=== PATIENT | female | born 1990 | race Two or more races ===

== ENCOUNTER → 2018-07-31 | Outpatient (CLI) | payer SELFPAY ==
--- NOTE | 2018-07-31 16:45 | RADIOLOGY REPORT (SQ) ---
EXAM DESCRIPTION: U/S 1TRIMESTER/1GEST W/DOPPLER COMPLETED DATE/TIME: 07/31/2018 3:41 pm REASON FOR STUDY: ENCOUNTER FOR SUPERVISION OF NORMAL FIRST Z34.01 ENCNTR FOR SUPRVSN OF NORMAL FIRST PREG, FIRST TRIMES COMPARISON: None. TECHNIQUE: Transvaginal static and realtime grayscale images acquired of the pelvis. Additional bill cted spectral and color Doppler images recorded. All images stored on PACs. bHCG: Not available. CLINICAL DATES: JENNIFER: 03/16/2019. EGA: 7 weeks 3 days LIMITATIONS: None. FINDINGS: FETUS: Single Living intrauterine . ULTRASOUND EGA: 6 weeks 2 days ULTRASOUND JENNIFER: 03/24/2019 EFW: Not applicable less than 20 weeks. CRL: 0.40 cm FHR: 103 beats per minute. SURVEY: No visualized anomalies. AMNIOTIC FLUID: Adequate amount. PLACENTA: Not yet developed due to early gestation. SUBCHORIONIC BLEED: No SIZE OF BLEED: Not applicable. UTERUS: The uterus measures 8.7 x 5.1 x 5.3 cm. No masses. No anomalies. CERVICAL LENGTH: 3.6 cm. Closed. RIGHT ADNEXA: The right ovary measures 3.6 x 2.4 x 3.4 cm. Normal ovary with normal vascular flow. A 1.8 x 1.4 x 1.7 cm complex cyst, may represent corpus luteum cyst of . LEFT ADNEXA: The left ovary measures 2.5 x 1.9 x 1.4 cm. Normal ovary with normal vascular flow. No adnexal free fluid. No adnexal masses. FREE FLUID: None. OTHER: No other significant finding. IMPRESSION: LIVING INTRAUTERINE . EGA: 6 weeks 2 days Small complex right ovarian cyst, may represent corpus luteum cyst of . Trimester of : First - 0 to 13 weeks. TECHNICAL DOCUMENTATION: JOB ID: [id number] [employer]- All Rights Reserved rev Reading location - IP/workstation name: [email or web address]
== END ==
LOC: RAD 14:58
PROVIDERS: ATTEND Nurse Practitioner
DX: Z34.01 Encounter for supervision of normal first pregnancy, first trimester (principal)
CPT/HCPCS: 76801; 93976

== ENCOUNTER 2018-11-12 23:07 | Emergency (ER) | payer OTHER, MEDICAID ==
[2018-11-12 23:22] VITALS: BP 110/61
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
== END 2018-11-12 23:52 | disposition home or self-care (01) ==
LOC: ER 23:07
DX: O26.892 Other specified pregnancy related conditions, second trimester (principal); R10.84 Generalized abdominal pain; V69.40XA Driver of heavy transport vehicle injured in collision with unspecified motor vehicles in traffic accident, initial encounter; Z3A.20 20 weeks gestation of pregnancy
CPT/HCPCS: 99281

== ENCOUNTER 2018-11-12 23:59 | Outpatient (CLI) | payer OTHER, MEDICAID ==
[2018-11-13 00:46] LABS: APPEARANCE,URINE SLIGHTLY-CLOUDY; BILIRUBIN,URINE NEGATIVE (NEGATIVE); COLOR,URINE STRAW; GLUCOSE, URINE 50 mg/dL (NEGATIVE); KETONES,URINE NEGATIVE (NEGATIVE); LEUKOCYTE ESTERASE,URINE NEGATIVE (NEGATIVE); NITRITE,URINE NEGATIVE (NEGATIVE); PROTEIN,URINE NEGATIVE (NEGATIVE); URINE SPECIFIC GRAVITY 1.006; UROBILINOGEN,URINE NEGATIVE mg/dL (<2.0)
[2018-11-13 01:00] LABS: INTERNATIONAL RATION (INR) 0.85; PROTHROMBIN TIME 12.1 SEC (11.4-15.4)
[2018-11-13 01:06] LABS: FIBRINOGEN 413 mg/dL (209-497)
[2018-11-13 01:09] LABS: URINE AMPHETAMINES SCREEN NEGATIVE; URINE BARBITURATES SCREEN NEGATIVE; URINE BENZODIAZEPINES SCREEN NEGATIVE; URINE COCAINE SCREEN NEGATIVE; URINE METHADONE SCREEN NEGATIVE; URINE PHENCYCLIDINE SCREEN NEGATIVE
[2018-11-13 01:12] LABS: URINE MARIJUANA (THC) SCREEN UNCONFIRMED POSITIVE
[2018-11-13 02:01] LABS: HEMATOCRIT 30.8 % (36.0-47.0); HEMOGLOBIN 10.2 g/dL (12.0-15.5); MEAN CORPUSCULAR HEMOGLOBIN 28.6 pg (27.0-33.4); MEAN CORPUSCULAR HGB CONC 33.2 g/dL (32.0-36.0); MEAN CORPUSCULAR VOLUME 86 fl (80-97); PLATELET COUNT 253 10^3/uL (150-450); RED BLOOD COUNT 3.58 10^6/uL (3.72-5.28); RED CELL DISTRIBUTION WIDTH 15.7 % (11.5-14.0); WHITE BLOOD COUNT 15.8 10^3/uL (4.0-10.5)
[2018-11-13 02:28] LABS: ABSOLUTE LYMPHOCYTES# (MANUAL) 4.7 10^3/uL (0.5-4.7); ABSOLUTE MONOCYTES # (MANUAL) 1.1 10^3/uL (0.1-1.4); BAND NEUTROPHILS % (MANUAL) 1 % (3-5); BASOPHILS % (MANUAL) 0 % (0-2); EOSINOPHILS % (MANUAL) 0 % (0-6); LYMPHOCYTES % (MANUAL) 29 % (13-45); MONOCYTES % (MANUAL) 7 % (3-13); PLATELET COMMENT ADEQUATE; PLATELET LARGE PRESENT; SEGMENTED NEUTROPHILS % (MAN) 58 % (42-78); TOTAL CELLS COUNTED 100
[2018-11-13 02:29] LABS: METAMYELOCYTES % (MANUAL) 4 % (0)
[2018-11-13 10:35] LABS: PATH REVIEW PATHOLOGIST REVIEWED
== END 2018-11-13 02:44 | disposition home or self-care (01) ==
LOC: LC 23:59
PROVIDERS: ATTEND Obstetrics & Gynecology
PROC: 4A1HXCZ Monitoring of Products of Conception, Cardiac Rate, External Approach (ICD-10-PCS; principal; 2018-11-12)
DX: O9A.212 Injury, poisoning and certain other consequences of external causes complicating pregnancy, second trimester (principal); O47.02 False labor before 37 completed weeks of gestation, second trimester; Z3A.22 22 weeks gestation of pregnancy
CPT/HCPCS: 86900; 86901; 36415; 86850; 85025; 85384; 85610; 85730; 81001; 80307; 59899; G0480 ×2; 80349

== ENCOUNTER 2019-03-23 13:41 | Inpatient (IN) | payer MEDICAID ==
[2019-03-23 14:35] LABS: APPEARANCE,URINE CLEAR; BILIRUBIN,URINE NEGATIVE (NEGATIVE); COLOR,URINE STRAW; GLUCOSE, URINE 50 mg/dL (NEGATIVE); KETONES,URINE NEGATIVE (NEGATIVE); LEUKOCYTE ESTERASE,URINE NEGATIVE (NEGATIVE); NITRITE,URINE NEGATIVE (NEGATIVE); PROTEIN,URINE NEGATIVE (NEGATIVE); URINE SPECIFIC GRAVITY 1.004; UROBILINOGEN,URINE NEGATIVE mg/dL (<2.0)
[2019-03-23 14:50] LABS: URINE AMPHETAMINES SCREEN NEGATIVE; URINE BARBITURATES SCREEN NEGATIVE; URINE BENZODIAZEPINES SCREEN NEGATIVE; URINE COCAINE SCREEN NEGATIVE; URINE METHADONE SCREEN NEGATIVE; URINE PHENCYCLIDINE SCREEN NEGATIVE
[2019-03-23 14:52] LABS: URINE MARIJUANA (THC) SCREEN UNCONFIRMED POSITIVE
--- NOTE | 2019-03-23 15:48 | Admission Physical ---
Datetime Report Generated by CPN: 03/23/2019 15:48 CURRENT ADMISSION Chief Complaint: Suspected Ruptured Membranes Indication for Induction: Not Applicable Admit Impression : Term, Intrauterine ; Ruptured Membranes Admit Plan: Admit to Unit; Initiate Labor Protocol ALLERGIES Medication Allergies: No Medication Allergies: No Known Allergies (11/13/2018) Latex: No Latex Allergies Food Allergies: No known allergies Environmental Allergies: No known allergies OBSTETRICAL HISTORY EDC: 03/18/2019 00:00 : 1 Para: 0 Term: 0 : 0 SAB: 0 IAB: 0 Livin Cesareans: 0 Gestational Diabetes: Yes Rh Sensitization: No Incompetent Cervix: No RANJITH: No Infertility: No ART Treatment: No Uterine Anomaly: No IUGR: No Hx Previous C/S: No Macrosomia: No Hx Loss/Stillborn: No PIH: No Hx : No Placenta Previa/Abruption: No Depression/PP Depression: No PTL/PROM: No Post Hemorrhage: No Current Procedures: Ultrasound Obstetrical History Comments: G1 - Current SEE RECORDS Alcohol: No Marijuana : Yes Marijuana Comments: Pt states no MJ use, however +THC in urine Cocaine: No Other Illicit Drugs: No Cigarettes: Former Smoker. 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 Surgery: No Heart Disease: No Hosp/Surgery: No Autoimmune Disorder: No Anesthetic Complications: No Kidney Disease: No Abnormal Pap Smear: No Neuro/Epilepsy: No Psychiatric Disorders: No Other Medical Diseases: No Hepatitis/Liver Disease: No Significant Family History: No Varicosities/Phlebitis: No Trauma/Violence : No Thyroid Dysfunction: No INFECTIOUS HISTORY Gonorrhea: No Genital Herpes: No Chlamydia: No Tuberculosis: No Syphilis: No Hepatitis: No HIV/AIDS Exposure: No Rash or Viral Illness: No HPV: No PHYSICAL EXAM General: Normal HEENT: Normal Neurologic: Normal Heart: Normal Lungs: Normal Abdomen: Normal Genitourinary Exam: Normal Extremities: Normal Pelvic Type: Adequate Vital Signs: Reviewed; Within Normal Limits VAGINAL EXAM Dilatation: 2 Effacement: 80 (Annotations: Data stored by CPN on behalf of user) Contraction Comments: 4-10 min MEMBRANES Membranes: Ruptured FETUS A EGA: 40.5 Monitoring: External US FHR- Baseline: 140 Accelerations: 15X15 Decelerations: None FHR Category: Category I Presentation: Vertex PLANS FOR LABOR AND DELIVERY Labor and Delivery: None Pain Management: Natural; Epidural Feeding Preference: Breast Benefit of Breast Feed Discussed: Yes Circumcision: Yes INFORMED CONSENT Signature: with User ID: [email or web address]
[2019-03-23] MEDS ORDERED: RINGERS SOLUTION,LACTATED 1,000 ML IV PRN (16:00)
[2019-03-23 16:23] LABS: ABSOLUTE BASOPHILS # (AUTO) 0.1 10^3/uL (0.0-0.2); ABSOLUTE LYMPHOCYTES (AUTO) 2.1 10^3/uL (0.5-4.7); ABSOLUTE MONOCYTES (AUTO) 1.5 10^3/uL (0.1-1.4); ABSOLUTE NEUT (AUTO) 9.1 10^3/uL (1.7-8.2); BASOPHILS % (AUTO) 0.5 % (0-2); EOSINOPHILS % (AUTO) 0.3 % (0-6); HEMATOCRIT 33.5 % (36.0-47.0); HEMOGLOBIN 11.1 g/dL (12.0-15.5); LYMPHOCYTES % (AUTO) 16.6 % (13-45); MEAN CORPUSCULAR HEMOGLOBIN 28.7 pg (27.0-33.4); MEAN CORPUSCULAR HGB CONC 33.1 g/dL (32.0-36.0); MEAN CORPUSCULAR VOLUME 87 fl (80-97); MONOCYTES % (AUTO) 11.4 % (3-13); PLATELET COUNT 287 10^3/uL (150-450); RED BLOOD COUNT 3.86 10^6/uL (3.72-5.28); RED CELL DISTRIBUTION WIDTH 15.6 % (11.5-14.0); SEGMENTED NEUTROPHILS % (AUTO) 71.2 % (42-78); TOTAL CELLS COUNTED % (AUTO) 100 %; WHITE BLOOD COUNT 12.7 10^3/uL (4.0-10.5)
[2019-03-23] MEDS ORDERED: OXYTOCIN/NORMAL SALINE 20 UNIT/1,000 ML RTUINJ ONE ×2 (17:16→19:33)
[2019-03-23] MEDS ORDERED: FAMOTIDINE INJ/PF 20 MG/2 ML SDV IV ONE ×2 (17:56→17:59)
[2019-03-23] MEDS ORDERED: PROMETHAZINE HCL INJ 25 MG/1 ML VIAL ONE (18:13)
[2019-03-23] MEDS ORDERED: NALBUPHINE HCL INJ 10 MG/1 ML AMPULE ONE (18:13)
[2019-03-23] MEDS ORDERED: NALBUPHINE HCL INJ 10 MG/1 ML AMPULE INJ ONE (18:16)
[2019-03-23] MEDS ORDERED: PROMETHAZINE HCL INJ 25 MG/1 ML VIAL IV ONE (18:16)
[2019-03-23] MEDS ORDERED: LIDOCAINE 1% INJ-PF (10 MG/ML) 30 ML SDV ONE (19:33)
[2019-03-23] MEDS ORDERED: MISOPROSTOL 0.2 MG TABLET ONE (19:33)
[2019-03-23] MEDS ORDERED: OXYTOCIN 10 UNIT/ML VIAL ONE (19:33)
[2019-03-23] MEDS ORDERED: FENTANYL CITRATE INJ/PF 100 MCG/2 ML AMPUL ONE (19:43)
[2019-03-23] MEDS ORDERED: PHENYLEPHRINE HCL INJ/PF 10 MG/1 ML SDV ONE (19:43)
[2019-03-23] MEDS ORDERED: EPHEDRINE SULFATE INJ 50 MG/1 ML AMPULE ONE (19:43)
[2019-03-23] MEDS ORDERED: BUPIVACAINE HCL 0.25 % INJ/PF (2.5 MG/1 ML) 30 ML VIAL ONE (19:44)
[2019-03-23] MEDS ORDERED: FENTANYL/BUPIVACAINE/NS/PF 300 MCG/150 ML RTUINJ EPI ONE (19:44)
[2019-03-24] MEDS ORDERED: ZOLPIDEM TARTRATE 5 MG TABLET PO PRN (08:56)
[2019-03-24] MEDS ORDERED: BENZOCAINE/MENTHOL AEROSOL SPRAY 56 ML TOP PRN (08:56)
[2019-03-24] MEDS ORDERED: DIPH/PERTUSS(ACELL)/TETANUS VAC/PF 0.5 ML SYR (>=10YO) IM PRN (08:56)
[2019-03-24] MEDS ORDERED: DIBUCAINE 1% OINTMENT 56 GM TP PRN (08:56)
[2019-03-24] MEDS ORDERED: OXYTOCIN/NORMAL SALINE 20 UNIT/1,000 ML RTUINJ IV PRN (08:56)
[2019-03-24] MEDS ORDERED: IBUPROFEN 800 MG TABLET ONE (09:06)
[2019-03-24] MEDS ORDERED: ACETAMINOPHEN 325 MG TABLET ONE (09:06)
[2019-03-24] MEDS ORDERED: BENZOCAINE/MENTHOL AEROSOL SPRAY 56 ML ONE (09:07)
--- NOTE | 2019-03-24 11:20 | Delivery Summary ---
Del Sum A-C Datetime Report Generated by CPN: 03/24/2019 11:19 DELIVERY PERSONNEL DELIVERY PERSONNEL: [id number] Delivery Doctor:: Krista Choudhury MD Labor and Delivery Nurse:: Nano Salas RNe commerce specialist Nurse:: Christianne Rick RN Demolition Expert/QUALITY CONTROL COORDINATOR: Love Quinteros, GLUING MACHINE ADJUSTER MATERNAL INFORMATION Delivery Anesthesia: Epidural Medications After Delivery: Pitocin Drip 20 Units/1000ml NSS Meds After Delivery Comment: pitocin 20 units in 1000mL nss Delivery QBL: 450 Delivery QBL Comment: 450 ml Maternal Complications: None Provider Comments: of a viable male at 0818 with a GREGORIA cephalic w/nuchal cord x 1 presentation; APGARS pending; 3rd deg vag and 1st deg left periurethtral lacs LABOR SUMMARY EDC: 03/24/2019 00:00 No. Babies in Womb: 1 Attempted: No Labor Anesthesia: Epidural LABOR INFORMATION Reason for Induction: Not Applicable Onset of Labor: 03/24/2019 08:00 Complete Dilatation: 03/24/2019 04:42 Oxytocin: Augmentation Group B Beta Strep: negative Steroids Given: None Reason Steroids Not Administered: Not Applicable MEMBRANES Membranes Rupture Method: Spontaneous Rupture of Membranes: 03/23/2019 08:00 Length of Rupture (hr): 24.30 Amniotic Fluid Color: Clear Amniotic Fluid Amount: None Amniotic Fluid Odor: Normal STAGES OF LABOR Stage 1 hr: -3 Stage 1 min: -18 Stage 2 hr: 3 Stage 2 min: 36 Stage 3 hr: 0 Stage 3 min: 5 Total Time in Labor hr: 0 Total Time in Labor min: 23 VAGINAL DELIVERY Episiotomy: None Laceration #1: Vaginal Laceration Extension #1: Third Degree, IIIa (Less than 50 percent ext anal sphincter thickness torn) Laceration #2: Periurethral Laceration Extension #2: First Degree Laceration Repair: Yes Laceration Repair Note: 3rd degree midline vaginal and 1st degree left periurethral lacs repaired with 2-0 Vicryl Sponge Count Correct: Yes Sharps Count Correct: Yes CSECTION DELIVERY Primary Indication: N/A Secondary Indication: N/A CSection Incidence: N/A Labor: N/A Elective: N/A CSection Incision: N/A BABY A INFORMATION Infant Delivery Date/Time: 03/24/2019 08:18 Method of Delivery: Vaginal Born in Route : No : N/A Forceps: N/A Vacuum Extraction: N/A Shoulder Dystocia : No PRESENTATION/POSITION BABY A Presentation: Cephalic Cephalic Presentation: Vertex Vertex Position: Left Occipital Anterior Breech Presentation: N/A PLACENTA INFORMATION BABY A Placenta Delivery Time : 03/24/2019 08:23 Placenta Method of Delivery: Spontaneous Placenta Status: Delivered SCORES BABY A Heart Rate 1 min: >100 bpm Resp Effort 1 min: Slow, Irregular Reflex Irritability 1 min: No Response Muscle Tone 1 min: Some Flexion of Extremities Color 1 min: Blue/Pale Resuscitation Effort 1 min: Tactile Stimulation SCORE 1 MIN: 4 Heart Rate 5 min: >100 bpm Resp Effort 5 min: Good Cry Reflex Irritability 5 min: Cough or Sneeze or Pulls Away Muscle Tone 5 min: Active Motion Color 5 min: Body [place], Extremities Blue Resuscitation Effort 5 min: Tactile Stimulation SCORE 5 MIN: 9 INFORMATION BABY A Gestational Age at Delivery: 40.0 Gestational Status: Full Term- 39- 40.6 Weeks Infant Outcome : Liveborn Condition : Stable Infant Sex: Male IDENTIFICATION BABY A Infant Verification Date/Time: 03/24/2019 09:29 ID Band Number: [id number] Mother's Name Verified: Yes Infant RN Verifying Infant: H. Prabhjot, RN and B. Baidy, RN WEIGHT/LENGTH BABY A Infant Birthweight (gm): 3940 Weight (lb): 8 Weight (oz): 11 Length (in): 21.50 Length (cm): 54.61 CORD INFORMATION BABY A No. Cord Vessels: 3 Nuchal Cord : Around Neck x1, Loose Cord Blood Taken: Yes-For Eval (Mom's Blood Type - or O+) Infant Suction: Mouth ASSESSMENT BABY A Infant Complications: Multiple Variable Decels Physical Findings at Delivery: Caput Succedaneum; Molding of the Head Respirations: Appears Normal Skin to Skin: Yes Pasteuriser Operator/ALS Called : No Infant Care By: H Prabhjot RN Transferred To: Remains with Mother BABY B INFORMATION : N/A SIGNATURES Signature: with User ID: [email or web address]
[2019-03-24] MEDS: PRENATAL VITAMIN W DHA CAPSULE PO SCH (11:53)
[2019-03-24] MEDS: FERROUS SULFATE 325 MG TABLET PO SCH ×2 (11:53→21:17)
[2019-03-24] MEDS: SENNOSIDES/DOCUSATE 8.6-50 MG 1 EACH TABLET PO SCH (11:53)
[2019-03-24] MEDS: DOCUSATE SODIUM 100 MG CAPSULE PO SCH ×2 (11:53→21:17)
[2019-03-24] MEDS: IBUPROFEN 800 MG TABLET PO SCH ×2 (13:55→21:17)
[2019-03-25] MEDS: ACETAMINOPHEN WITH CODEINE #3 TABLET PO PRN ×4 (03:17→22:53)
[2019-03-25] MEDS: IBUPROFEN 800 MG TABLET PO SCH ×3 (06:41→21:13)
[2019-03-25 07:41] LABS: HEMATOCRIT 24.8 % (36.0-47.0); MEAN CORPUSCULAR HEMOGLOBIN 28.9 pg (27.0-33.4); MEAN CORPUSCULAR HGB CONC 33.1 g/dL (32.0-36.0); MEAN CORPUSCULAR VOLUME 87 fl (80-97); PLATELET COUNT 231 10^3/uL (150-450); RED BLOOD COUNT 2.85 10^6/uL (3.72-5.28); RED CELL DISTRIBUTION WIDTH 15.8 % (11.5-14.0); WHITE BLOOD COUNT 19.2 10^3/uL (4.0-10.5)
[2019-03-25 07:44] LABS: HEMOGLOBIN 8.2 g/dL (12.0-15.5)
[2019-03-25] MEDS ORDERED: IRON SUCROSE COMPLEX INJ/PF 100 MG/5 ML SDV IV ONE (09:00)
--- NOTE | 2019-03-25 10:42 | PDOC PROGRESS REPORT ---
Subjective-OB Progress Note for:: 03/25/19 Subjective: Pt in NICU with baby, doing well, no concerns. She reports light bleeding, reg diet and voiding without difficulty. Physical Exam (OB) Vital Signs: Temp Pulse Resp BP Pulse Ox 97.8 F 84 14 120/70 100 03/25/19 07:24 03/25/19 07:24 03/25/19 07:24 03/25/19 08:28 03/25/19 07:24 Intake & Output 03/24/19 03/25/19 03/26/19 06:59 06:59 06:59 Intake Total 400 Output Total 500 Balance -100 Weight 87 kg - Abdomen Description: Soft, Round Hernia Present: No Fundal Description: Firm, Midline Fundal Height: u/u - u/2 Objective-Diagnostic Laboratory: 03/25/19 07:11 03/25/19 07:11 WBC 19.2 H RBC 2.85 L Hgb 8.2 L D Hct 24.8 L MCV 87 MCH 28.9 MCHC 33.1 RDW 15.8 H Plt Count 231 Assessment and Plan(PN) - Assessment and Plan (1) Anemia due to acute blood loss Is this a current diagnosis for this admission?: Yes - Time Spent with Patient Time with patient: Less than 15 minutes Medications reviewed and adjusted accordingly: Yes - Disposition Anticipated Discharge: Home Within: within 24 hours
[2019-03-25] MEDS: SENNOSIDES/DOCUSATE 8.6-50 MG 1 EACH TABLET PO SCH (10:58)
[2019-03-25] MEDS: DOCUSATE SODIUM 100 MG CAPSULE PO SCH ×2 (10:58→17:44)
[2019-03-25] MEDS: FERROUS SULFATE 325 MG TABLET PO SCH ×2 (10:58→17:44)
[2019-03-25] MEDS: PRENATAL VITAMIN W DHA CAPSULE PO SCH (10:58)
[2019-03-26] MEDS: IBUPROFEN 800 MG TABLET PO SCH ×2 (06:13→13:33)
[2019-03-26] MEDS: ACETAMINOPHEN WITH CODEINE #3 TABLET PO PRN (08:17)
--- NOTE | 2019-03-26 10:11 | PDOC DISCHARGE SUMMARY ---
Final Diagnosis Discharge Date: 03/26/19 - Day #2, pt doing well, no complaints, states she just has been able to have her baby in the room due to having blood sugar issues. Pt to be a Tyrese today after discharge. Hx of GDM this - Final Diagnosis (1) GDM (gestational diabetes mellitus) Is this a current diagnosis for this admission?: Yes (2) Normal course Is this a current diagnosis for this admission?: Yes (3) Anemia due to acute blood loss Is this a current diagnosis for this admission?: Yes (4) Vaginal delivery Is this a current diagnosis for this admission?: Yes Discharge Data - Discharge Medication Prescriptions: Docusate Sodium [Colace 100 mg Capsule] 100 mg PO BID #60 capsule Ferrous Sulfate [Feosol 325 mg Tablet] 325 mg PO DAILY #30 tablet Ibuprofen [Motrin 800 mg Tablet] 800 mg PO Q8 #60 tablet Home Medications: Pnv No.95/Ferrous Fum/Folic AC [ Caplet] 1 each PO BID MDD 1 tab 11/13/18 Docusate Sodium [Colace 100 mg Capsule] 100 mg PO BID #60 capsule 03/26/19 Ferrous Sulfate [Feosol 325 mg Tablet] 325 mg PO DAILY #30 tablet 03/26/19 Ibuprofen [Motrin 800 mg Tablet] 800 mg PO Q8 #60 tablet 03/26/19 Reason(s) for Admission: Onset of Labor Intrapartum Procedure(s): Spontaneous Vaginal Delivery Complication(s): Laceration-Perineal Laceration-Degree: 3rd - Diagnosis Test Laboratory: Temp Pulse Resp BP Pulse Ox 98.2 F 86 16 134/80 H 100 03/26/19 07:32 03/26/19 07:32 03/26/19 07:32 03/26/19 07:32 03/26/19 07:32 03/23/19 03/23/19 03/25/19 13:55 15:45 07:11 RBC 3.86 2.85 L Hgb 11.1 L 8.2 L D Hct 33.5 L 24.8 L Urine Opiates Screen NEGATIVE - Discharge information/Instructions Discharge Activity: Activity As Tolerated, No Lifting Over 10 Pounds, Pelvic Rest Discharge Diet: As Tolerated, Regular Disposition: HOME, SELF-CARE [facility] in: Weeks
[2019-03-26] MEDS: PRENATAL VITAMIN W DHA CAPSULE PO SCH (10:27)
[2019-03-26] MEDS: DOCUSATE SODIUM 100 MG CAPSULE PO SCH (10:27)
[2019-03-26] MEDS: SENNOSIDES/DOCUSATE 8.6-50 MG 1 EACH TABLET PO SCH (10:27)
[2019-03-26] MEDS: FERROUS SULFATE 325 MG TABLET PO SCH (10:27)
[2019-03-26 10:58] VITALS: BP 120/70
== END 2019-03-26 17:40 | disposition home or self-care (01) | DRG 806 ==
LOC: LC 13:41 → LR 14:47 → 2S 03-24 11:05
PROVIDERS: ADMIT Obstetrics & Gynecology; ATTEND Obstetrics & Gynecology
PROC: 10E0XZZ Delivery of Products of Conception, External Approach (ICD-10-PCS; principal; 2019-03-24)
PROC: 0HQ9XZZ Repair Perineum Skin, External Approach (ICD-10-PCS; 2019-03-24)
PROC: 0UQGXZZ Repair Vagina, External Approach (ICD-10-PCS; 2019-03-24)
PROC: 4A1HX4Z Monitoring of Products of Conception, Cardiac Electrical Activity, External Approach (ICD-10-PCS; 2019-03-24)
DX: O24.420 Gestational diabetes mellitus in childbirth, diet controlled (principal); O71.4 Obstetric high vaginal laceration alone; Z37.0 Single live birth; D62 Acute posthemorrhagic anemia; O69.81X0 Labor and delivery complicated by cord around neck, without compression, not applicable or unspecified; O71.82 Other specified trauma to perineum and vulva; Z3A.40 40 weeks gestation of pregnancy; O76 Abnormality in fetal heart rate and rhythm complicating labor and delivery; O99.02 Anemia complicating childbirth; R82.5 Elevated urine levels of drugs, medicaments and biological substances; Z87.891 Personal history of nicotine dependence
CPT/HCPCS: 36415; 80307; 80349; 81005; 84112; 85025; 85027; 86592; 86850; 86900; 86901; 90715; 94760; G0480; J1756; J2300; J2370; J2550; J2590; J3010; J3490; S0028